=== PATIENT | male | born 1985 | race Two or more races ===

== ENCOUNTER 2018-03-11 09:17 | Emergency (ER) | payer OTHER ==
[~2018-03-11] VITALS: Ht 177.8 cm; Wt 145.1 kg
[2018-03-11 09:25] VITALS: BP 156/95
[2018-03-11] MEDS ORDERED: OFLO5DRO7 EACH EAR (09:48)
[2018-03-11] MEDS ORDERED: IBUP-1060 PO (09:48)
--- NOTE | 2018-03-11 09:48 | PHYS DOC ---
Past Medical History Past Medical History: Anxiety, Other Additional Past Medical Histor: PANIC ATTACKS Past Surgical History: No Surgical History Alcohol Use: None Drug Use: None Adult General Chief Complaint Chief Complaint: EARACHE/EAR PAIN HPI HPI Patient is a 32 year old male who presents with 8 out of 10 left ear pain that began 2 days ago. Patient denies any fever. Patient describes the pain as sharp and constant. Denies any fever coughing or congestion. Review of Systems Review of Systems Constitutional: Denies fever or chills [] Eyes: Denies change in visual acuity, redness, or eye pain [] HENT: Reports left ear pain. Denies nasal congestion or sore throat [] Respiratory: Denies cough or shortness of breath [] Cardiovascular: No additional information not addressed in HPI [] GI: Denies abdominal pain, nausea, vomiting, bloody stools or diarrhea [] : Denies dysuria or hematuria [] Musculoskeletal: Denies back pain or joint pain [] Integument: Denies rash or skin lesions [] Neurologic: Denies headache, focal weakness or sensory changes [] All other systems were reviewed and found to be within normal limits, except as documented in this note. Allergies Allergies Allergies Coded Allergies Type Severity Reaction Last Updated Verified No Known Drug Allergies 07/02/15 No Physical Exam Physical Exam Constitutional: Well developed, well nourished, no acute distress, non-toxic appearance. [] HENT: Normocephalic, atraumatic, bilateral external ears normal, oropharynx moist, no oral exudates, nose normal. [] Left ear canal is swollen, there is small amount of exudate yellow in color in the ear canal, left tragus is Painful. Eyes: PERRLA, EOMI, conjunctiva normal, no discharge. [] Neck: Normal range of motion, no tenderness, supple, no stridor. [] Cardiovascular:Heart rate regular rhythm, no murmur [] Lungs & Thorax: Bilateral breath sounds clear to auscultation [] Abdomen: Bowel sounds normal, soft, no tenderness, no masses, no pulsatile masses. [] Skin: Warm, dry, no erythema, no rash. [] Back: No tenderness, no CVA tenderness. [] Extremities: No tenderness, no cyanosis, no clubbing, ROM intact, no edema. [] Neurologic: Alert and oriented X 3, normal motor function, normal sensory function, no focal deficits noted. [] Psychologic: Affect normal, judgement normal, mood normal. [] Current Patient Data Vital Signs Vital Signs Date Time Temp Pulse Resp B/P (MAP) Pulse Ox O2 Delivery O2 Flow Rate FiO2 03/11/18 09:25 99.0 96 16 156/95 (115) 98 Room Air 99.0 EKG EKG [] Radiology/Procedures Radiology/Procedures [] Course & Med Decision Making Course & Med Decision Making Pertinent Labs and Imaging studies reviewed. (See chart for details) Patient has left otitis externa, discharged with Skelaxin. Tylenol Motrin for pain or fever. Follow-up with primary care doctor in 1-2 weeks or the provided ENT specialist. Dragon Disclaimer Dragon Disclaimer This electronic medical record was generated, in whole or in part, using a voice recognition dictation system. Departure Departure Impression: Primary Impression: Left otitis externa Disposition: HOME, SELF-CARE Condition: STABLE Referrals: NO PCP (PCP) ARAMIS REVELES MD follow up in 1-2 weeks Patient Instructions: Otitis Externa, [id number] Additional Instructions: You were seen for left ear infection. Use the antibiotic prescribed as ordered. Take Tylenol or Motrin as needed for pain. Scripts Ibuprofen (IBUPROFEN) 800 Mg Tablet 800 MG PO PRN Q6HRS PRN for INFLAMMATION, #30 TAB Prov: WENDIE MARTINEZ APRN 03/11/18 Ofloxacin (OFLOXACIN) 5 Ml Drops 5 DROP EACH EAR BID, #10 ML Prov: WENDIE MARTINEZ APRN 03/11/18 Problem Qualifiers Primary Impression: Left otitis externa Otitis externa type: unspecified type Chronicity: acute Qualified Codes: H60.502 - Unspecified acute noninfective otitis externa, left ear WENDIE MARTINEZ APRN Mar 11, 2018 09:48
== END 2018-03-11 10:07 | disposition home or self-care (01) ==
LOC: ER 09:17
DX: H60.502 Unspecified acute noninfective otitis externa, left ear (principal)
CPT/HCPCS: 99283